=== PATIENT | male | born 1955 | race Caucasian/White ===

== ENCOUNTER → 2022-07-11 13:36 | Outpatient (CLI) | payer MEDICARE, SELFPAY ==
--- NOTE | ~2022-07-11 | MR_ITS ---
EXAMINATION: MR cervical spine wo/w con DATE: 07/11/2022 15:04 INDICATION: Neck pain. Cervical spondylosis. TECHNIQUE: Magnetic resonance imaging (MRI) of the cervical spine was performed without and with 20 m L MultiHance intravenous contrast. COMPARISON: None FINDINGS: Bone alignment is normal. Vertebral body heights are normal. There is moderately decreased disc height at C4-C5 and mildly decreased disc height at C5-C6. The spinal cord signal intensity is n ormal. The following disc levels are specifically discussed: C2-C3: There is a central protrusion. There is mild left uncovertebral joint osteoarthritis. There is moderate bilateral facet joint osteoarthritis. There is mild left neural foraminal stenosis. There i s no central canal stenosis. C3-C4: There is a central extrusion with 8 mm superior extension. There is mild right and severe left uncovertebral joint osteoarthritis. There is moderate right and severe left facet joint osteoarthrit is. There is mild right and moderate left neural foraminal stenosis. There is moderate central canal stenosis with ventral and dorsal indentation of the spinal cord. C4-C5: The disc is bulging. There is severe bilateral uncovertebral joint osteoarthritis. There is mi ld bilateral facet joint osteoarthritis. There is moderate bilateral neural foraminal stenosis. There is mild central canal stenosis. C5-C6: There is a central extrusion. There is mild bilateral uncovertebral joint osteoarthritis. Ther e is moderate right and severe left facet joint osteoarthritis. There is mild bilateral neural forami nal stenosis. There is mild central canal stenosis. C6-C7: There is a central protrusion. There is mild right and moderate left uncovertebral joint osteo arthritis. There is severe right and moderate left facet joint osteoarthritis. There is no neural for aminal stenosis. There is no central canal stenosis. C7-T1: The disc does not extend beyond the endplate margin. There is no uncovertebral joint osteoarth ritis. There is mild bilateral facet joint osteoarthritis. There is no neural foraminal stenosis. The re is no central canal stenosis. IMPRESSION: 1. Moderate cervical spondylosis. Reviewed, dictated and finalized at location A.
== END ==
PROVIDERS: PCP Family Medicine; Visit Provider Family Medicine
DX: M54.2 Cervicalgia (principal); M47.812 Spondylosis without myelopathy or radiculopathy, cervical region; R20.2 Paresthesia of skin; R53.1 Weakness; R00.2 Palpitations; R06.02 Shortness of breath; M43.02 Spondylolysis, cervical region
CPT/HCPCS: 72156; A9577

== ENCOUNTER → 2022-07-18 10:15 | Outpatient (CLI) | payer MEDICARE, SELFPAY ==
--- NOTE | ~2022-07-18 | MR_ITS ---
EXAMINATION: MR brain IAC wo/w con DATE: 07/18/2022 11:35 INDICATION: Recent stroke presenting with sensorineural hearing loss and increasing tinnitus. Headach e. TECHNIQUE: Magnetic resonance imaging (MRI) of the brain and brainstem was performed without and with 20 mL Multihance intravenous contrast. Sequences included sagittal and axial T1-weighted FSE, axial diffusion-weighted FS EPI, axial T2*-weighted GRE, axial T2-weighted FLAIR Propeller, axial T2-weight ed Propeller, small uxeoy-vs-annt coronal FIESTA, small ufxlw-hu-ggiw coronal T1-weighted FSE, and sm all awrbh-kc-unvc axial T1-weighted SPGR. Postcontrast sequences included axial T1-weighted FSE, smal l poiqy-qa-xhlv coronal T1-weighted FSE, and small uehsv-aq-ioal axial T1-weighted SPGR. Apparent dif fusion coefficient (ADC) maps were created. COMPARISON: None. FINDINGS: There are no areas of restricted diffusion to suggest acute infarction. No intracranial hemorrhage or abnormal intracranial mass lesion. The internal auditory canal and seventh/eighth cranial nerve comp lexes are normal. No cerebellopontine angles masses. No evidence of mastoid or middle ear fluid. Ther e are no intraparenchymal signal abnormalities seen on the other pulse sequences. The ventricles are symmetric and normal in size. There are no abnormal extra-axial fluid collections. Flow voids are see n in the cerebral arteries on the T2-weighted sequences consistent with their expected patency. Mild mucosal thickening the bilateral ethmoid sinuses. Visualized orbits and soft tissues are unremarkable . There are no areas of abnormal enhancement on the post contrast images. IMPRESSION: 1. Unremarkable MRI of the brain and internal auditory canals. No etiology identified for reported he aring loss and tinnitus. Reviewed, dictated and finalized at location A. IMPRESSION: 1. Unremarkable MRI of the brain and internal auditory canals. No etiology iden tified for reported hearing loss and tinnitus.
== END ==
PROVIDERS: PCP Family Medicine
DX: H90.5 Unspecified sensorineural hearing loss (principal)
CPT/HCPCS: 70553; A9577